=== PATIENT | female | born 1995 | race Caucasian/White ===

== ENCOUNTER 2016-12-06 21:12 | Emergency (ER) | payer OTHER ==
[~2016-12-06] VITALS: Ht 180.3 cm; Wt 75.7 kg
[2016-12-06 21:15] VITALS: TEMP 36.9; Ht 180.3 cm; Wt 75.7 kg
--- NOTE | 2016-12-06 21:58 | EMERGENCY ROOM VISIT NOTE ---
History Report prepared by Lucrecia: Monico Bernstein Under the Supervision of: Dr. Mauricio Vicente M.D. First contact with patient: 21:28 Chief Complaint: NEURO SYMPTOMS Stated Complaint: SLURRED SPEECH, MEMORY LOSS, NUMBNESS History of Present Illness The patient is a 20 year old female who presents to the Emergency Room with complaints of resolved numbness that occurred 30 minutes prior to arrival. The patients states that she was watching television and was on her phone frequently today. She states that her vision became blurry, but she thought it was due to watching a screen all day. The patient states that she got up and went to the bathroom to wash her face. She states that she could not move the right side of her face or her right hand correctly and reports they became numb. The patient states she was not able to talk. She reports that she could not move her hand and "froze up". The patient states that this episode lasted for 20 minutes. She reports that it rapidly resolved. The patient is accompanied by her boyfriend who said that her face was not drooping. He reports that she was having trouble forming sentences and was slightly slurring her speech. The patient admits that she is currently experiencing a headache that she describes as "all around", but believes this is because she is upset. She denies any leg weakness, gait troubles, LOC, taking medications, medication allergies, having symptoms in the past similar to her current symptoms, and a family history of neuro symptoms. 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 A total of 10 systems reviewed and were otherwise negative. Past Medical & Surgical Surgical Problems: (1) [place] teeth extracted Family History Cancer FH: heart disease Hypertension Social History Smoking Status: Never Smoker Smokeless Tobacco Use: No Alcohol Use: none Drug Use: none Marital Status: in relationship Housing Status: lives with roommate Occupation Status: [employer] Current/Historical Medications No Active Prescriptions or Reported Meds Allergies Coded Allergies: No Known Allergies (Unverified , 12/06/16) Physical Exam Vital Signs Date Time Temp Pulse Resp B/P (MAP) Pulse Ox O2 Delivery O2 Flow Rate FiO2 12/06/16 23:53 70 18 116/73 100 Room Air 12/06/16 22:32 77 12/06/16 22:30 79 18 115/77 99 Room Air 12/06/16 21:15 36.9 91 16 148/98 97 Room Air Physical Exam GENERAL: Patient is in no acute distress. Anxious and tearful. HEENT: No acute trauma, normocephalic atraumatic, mucous membranes moist, no nasal congestion, no scleral icterus. NECK: No stridor, no adenopathy, no meningismus, trachea is midline. No bruits. LUNGS: Clear to auscultation bilaterally, no wheeze, no rhonchi, breath sounds equal. HEART: Without murmurs gallops or rubs, regular rate and rhythm. ABDOMEN: Soft, nontender, bowel sounds positive, no hernias, no peritonitis. EXTREMITIES: No cyanosis or edema, full range of motion of all the joints without pain or difficulty, no signs for acute trauma. NEUROLOGIC: Oriented x 3, no acute motor or sensory deficits, no focal weakness. No facial droop or speech slur. No pronator drift or cerebellar dysfunction. SKIN: No rash, no jaundice, no diaphoresis. Medical Decision & Procedures ER Provider Diagnostic Interpretation: Radiology results as stated below per my review and radiologist interpretation: MRI HEAD: No ICH, mass effect, or edema. No foci of acute ischemia. No abnormal foci of signal or enhancement in the brain parenchyma. Radiologist: Taran Redmond MD Laboratory Results 12/06/16 22:20 Red Blood Count 4.59, Mean Corpuscular Volume 87.8, Mean Corpuscular Hemoglobin 30.3, Mean Corpuscular Hemoglobin Concent 34.5, Mean Platelet Volume 8.9, Neutrophils (%) (Auto) 44.9, Lymphocytes (%) (Auto) 42.6, Monocytes (%) (Auto) 6.6, Eosinophils (%) (Auto) 5.4, Basophils (%) (Auto) 0.5, Neutrophils # (Auto) 3.34, Lymphocytes # (Auto) 3.17, Monocytes # (Auto) 0.49, Eosinophils # (Auto) 0.40, Basophils # (Auto) 0.04 12/06/16 22:20 Test 12/06/16 21:45 12/06/16 22:20 Urine Color YELLOW Urine Appearance CLEAR (CLEAR) Urine pH 5.5 (4.5-7.5) Urine Specific [place] 1.017 (1.000-1.030) Urine Protein NEG (NEG) Urine Glucose (UA) NEG (NEG) Urine Ketones NEG (NEG) Urine Occult Blood NEG (NEG) Urine Nitrite NEG (NEG) Urine Bilirubin NEG (NEG) Urine Urobilinogen NEG (NEG) Urine Leukocyte Esterase NEG (NEG) Urine Opiates Screen NEG (NEG) Urine Methadone, Qualitative NEG (NEG) Urine Barbiturates NEG (NEG) Urine Phencyclidine (PCP) Level NEG (NEG) Ur Amphetamine/Methamphetamine NEG (NEG) MDMA (Ecstasy) Screen NEG (NEG) Urine Benzodiazepines Screen NEG (NEG) Urine Cocaine Metabolite NEG (NEG) Urine Marijuana (THC) NEG (NEG) White Blood Count 7.44 K/uL (4.8-10.8) Red Blood Count 4.59 M/uL (4.2-5.4) Hemoglobin 13.9 g/dL (12.0-16.0) Hematocrit 40.3 % (37-47) Mean Corpuscular Volume 87.8 fL (80-100) Mean Corpuscular Hemoglobin 30.3 pg (25-34) Mean Corpuscular Hemoglobin Concent 34.5 g/dl (32-36) Platelet Count 273 K/uL (130-400) Mean Platelet Volume 8.9 fL (7.4-10.4) Neutrophils (%) (Auto) 44.9 % Lymphocytes (%) (Auto) 42.6 % Monocytes (%) (Auto) 6.6 % Eosinophils (%) (Auto) 5.4 % Basophils (%) (Auto) 0.5 % Neutrophils # (Auto) 3.34 K/uL (1.4-6.5) Lymphocytes # (Auto) 3.17 K/uL (1.2-3.4) Monocytes # (Auto) 0.49 K/uL (0.11-0.59) Eosinophils # (Auto) 0.40 K/uL (0-0.5) Basophils # (Auto) 0.04 K/uL (0-0.2) RDW Standard Deviation 38.3 fL (36.4-46.3) RDW Coefficient of Variation 12.0 % (11.5-14.5) Immature Granulocyte % (Auto) 0.0 % Immature Granulocyte # (Auto) 0.00 K/uL (0.00-0.02) Prothrombin Time 10.8 SECONDS (9.0-12.0) Prothromb Time International Ratio 1.0 (0.9-1.1) Activated Partial Thromboplast Time 29.3 SECONDS (21.0-31.0) Partial Thromboplastin Ratio 1.1 Anion Gap 6.0 mmol/L (3-11) Est Creatinine Clear Calc Drug Dose 134.8 ml/min Estimated GFR () 133.9 Estimated GFR (Non- 115.6 BUN/Creatinine Ratio 15.0 (10-20) Calcium Level 9.4 mg/dl (8.5-10.1) Total Bilirubin 0.3 mg/dl (0.2-1) Aspartate Amino Transf (AST/SGOT) 11 U/L (15-37) Alanine Aminotransferase (ALT/SGPT) 14 U/L (12-78) Alkaline Phosphatase 97 U/L (45-117) Total Protein 8.0 gm/dl (6.4-8.2) Albumin 4.5 gm/dl (3.4-5.0) Globulin 3.5 gm/dl (2.5-4.0) Albumin/Globulin Ratio 1.3 (0.9-2) Thyroid Stimulating Hormone (TSH) 1.330 uIu/ml (0.300-4.500) Human Chorionic Gonadotropin, Qual NEG (NEG) Laboratory results reviewed by me. Medications Administered Medications (Trade) Dose Ordered Sig/Ramesh Route Start Time Stop Time Status Last Admin Dose Admin Aspirin (Aspirin Chew) 81 mg NOW STAT PO 12/07/16 00:30 12/07/16 00:31 DC 12/07/16 00:38 81 MG ECG Indication: weakness Rate (beats per minute): 75 Rhythm: normal sinus Findings: no acute ischemic change, no ectopy ED Course 2128: The patient was evaluated in room B12B. A complete history and physical exam was performed. 5: Ordered Gadobutrol 7.5 mmol IV. 0026: I reevaluated the patient and updated her on her results. 0029: I discussed the patient's case with Dr. Lindsay, [facility] Neurologist. He reports that he patient is able to go home and suggests giving her a baby aspirin. 0030: Ordered Aspirin 81 mg PO. 0034: Reevaluated the patient. Discussed results and discharge instructions: She verbalized understanding and agreement. The patient is ready for discharge. 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 Differential diagnoses considered include complex migraine, intracranial bleeding or mass, stroke, electrolyte imbalance, infection, dehydration, and stress. There is no leukocytosis or concerning anemia. No significant electrolyte abnormality, kidney failure or hepatitis. The patient appears to be in a euthyroid state. testing is negative. Urinalysis does not show infection. Urine tox is negative. EKG shows a sinus rhythm, no acute ischemia. Brain MRI shows no acute bleed, there is no mass, no evidence for stroke. On exam, the patient has no focal neurologic deficits. Patient presents with right sided symptoms that have resolved, she now has a mild headache. I discussed the case with neurology. Her presentation was felt to likely be consistent with a complex migraine. Patient is being discharged with outpatient neurologic follow-up. She will be on a baby aspirin daily for now until cleared by neurology. The patient should return for any worsening symptoms, rest and hydration were encouraged. Medication Reconcilliation Current Medication List: was personally reviewed by me Blood Pressure Screening Patient's blood pressure: Elevated blood pressure Blood pressure disposition: Elevated BP felt to be situational Consults Time Called: 28 Consulting Physician: Dr. Lindsay, [facility] Neurology Returned Call: [phone] I discussed the patient's case with Dr. Lindsay, [facility] Neurologist. He reports that he patient is able to go home and suggests giving her a baby aspirin. Impression Primary Impression: Numbness on right side Additional Impressions: Right sided weakness Head ache Scribe Attestation The scribe's documentation has been prepared under my direction and personally reviewed by me in its entirety. I confirm that the note above accurately reflects all work, treatment, procedures, and medical decision making performed by me. Departure Information Dispostion Home / Self-Care Prescriptions No Active Prescriptions or Reported Meds Referrals No Doctor, Assigned (PCP) Shaka Lindsay M.D. 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
[2016-12-06 22:39] LABS: URINE APPEARANCE CLEAR (CLEAR); URINE BILIRUBIN NEG (NEG); URINE COLOR YELLOW; URINE NITRITE NEG (NEG); URINE PH 5.5 (4.5-7.5); URINE SPECIFIC GRAVITY 1.017 (1.000-1.030); UROBILINOGEN NEG (NEG); ZZUR CULT IF INDIC CLEAN CATCH NO
[2016-12-06 22:42] LABS: MANUAL MICROSCOPIC REQUIRED? NO; REVIEW REQ? NO
[2016-12-06 22:46] LABS: PARTIAL THROMBOPLASTIN RATIO 1.1; PROTHROMBIN TIME (PATIENT) 10.8 SECONDS (9.0-12.0)
[2016-12-06 22:50] LABS: BASO % 0.5 %; BASO ABS # 0.04 K/uL (0-0.2); COMPLETE YES; EOS % 5.4 %; HEMATOCRIT 40.3 % (37-47); LYMPH % 42.6 %; LYMPH ABS # 3.17 K/uL (1.2-3.4); MEAN CELL VOLUME 87.8 fL (80-100); MEAN CORPUSCULAR HEMOGLOBIN 30.3 pg (25-34); MEAN CORPUSCULAR HGB CONC 34.5 g/dl (32-36); MEAN PLATELET VOLUME 8.9 fL (7.4-10.4); MONO % 6.6 %; NEUT % 44.9 %; PLATELET COUNT 273 K/uL (130-400); RED BLOOD COUNT 4.59 M/uL (4.2-5.4); WHITE BLOOD COUNT 7.44 K/uL (4.8-10.8)
[2016-12-06 22:54] LABS: PREG INTERNAL NEGATIVE QC NEG CLEAR BACKGROUND; PREG INTERNAL POSITIVE QC POS CONTROL LINE
[2016-12-06 23:02] LABS: CALCIUM 9.4 mg/dl (8.5-10.1); CREATININE 0.75 mg/dl (0.60-1.20); POTASSIUM 3.8 mmol/L (3.5-5.1)
[2016-12-06 23:13] LABS: ALB/GLOB RATIO 1.3 (0.9-2); THYROID STIMULATING HORMONE 1.33 uIu/ml (0.300-4.500)
[2016-12-06 23:16] LABS: BENZODIAZEPINE, URINE NEG (NEG); COCAINE,URINE NEG (NEG); PHENCYCLIDINE, URINE NEG (NEG)
[2016-12-06] MEDS ORDERED: GADAVIST IV PRN (23:25)
[2016-12-07] MEDS ORDERED: ASPIRIN 81 MG CHEW PO STA (00:30)
[2016-12-07 00:42] VITALS: BP 111/66; PULSE 75; O2SAT 97
--- NOTE | 2016-12-07 06:51 | DIAGNOSTIC IMAGING REPORT ---
BRAIN COMBO HISTORY: 20 years-old Female right face and arm numb, slurred speach for 20 minutes acute right arm and facial numbness with slurred speech COMPARISON: None available TECHNIQUE: Multiplanar multisequence MRI of the brain was obtained both with and without the use of 7.5 mL Gadavist FINDINGS: Large field of view professor of biochemistry images demonstrate no gross amount of the face or neck. No restricted diffusion to suggest acute ischemia. The midline structures including the corpus callosum, brainstem, optic chiasm, infundibulum, pituitary and pineal glands are unremarkable in the sagittal T1 sequence. No cerebellar tonsillar herniation. Imaged upper cervical spine is unremarkable. There is no acute intracranial hemorrhage, midline shift, abnormal extra-axial collections, hydrocephalus or intracranial mass. The Imaged cervical cord appears unremarkable. The major flow voids at the level of the skull base appear patent. There is an ill-defined somewhat linear area of mildly increased T2 signal and enhancement involving the periventricular left frontal lobe extending towards the left frontal horn as seen on image 17 of series 9 and image 12 of series 10 measuring 5 x 4 x 7 mm in AP, transverse and craniocaudal dimensions. No associated hemorrhage or edema. Mastoid air cells and paranasal sinuses are generally clear with only minimal anterior ethmoid sinus disease. Orbits are symmetric. Scalp and calvarium are unremarkable. IMPRESSION: 1. Ill-defined linear enhancing focus measuring up to 7 mm within the periventricular left frontal lobe as above suggests developmental venous angioma without associated hemorrhage. As a precautionary measure, a six-month follow-up may be considered to document stability. 2. Study is otherwise normal. No restricted diffusion to suggest acute ischemia. The above report was generated using voice recognition software. It may contain grammatical, syntax or spelling errors. Electronically signed by: Chino Doss M.D. 12/07/2016 6:49 AM Dictated Date/Time: 12/07/2016 6:40 AM
== END 2016-12-07 00:42 | disposition home or self-care (01) ==
LOC: C.EDB 21:14
DX: R51 Headache (principal); R20.0 Anesthesia of skin; R47.81 Slurred speech; R41.3 Other amnesia; R53.1 Weakness

== ENCOUNTER → 2016-12-29 | Outpatient (CLI) | payer OTHER ==
--- NOTE | 2016-12-29 14:06 | DIAGNOSTIC IMAGING REPORT ---
MRA OF THE INTRACRANIAL CIRCULATION WITHOUT CONTRAST CLINICAL HISTORY: Abnormal MRI. Hemisensory deficit. Numbness. COMPARISON STUDY: MRI of the brain December 06, 2016. TECHNIQUE: Utilizing a 1.5 Merry magnet and 3-D [id number] technique, unenhanced MRA of the intracranial circulation was obtained. FINDINGS: The bilateral M1, M2, A1 and A2 segments are patent. There is no intracranial aneurysm or abrupt vessel cut off. The posterior circulation is intact. Note is made of a right posterior communicating artery. The [place] sequence demonstrates an 8 mm hypointense focus within the left frontal lobe which corresponds to the suspected developmental venous anomaly shown on prior MRI. IMPRESSION: Unremarkable MRA of the intracranial circulation. Electronically signed by: Ronald Leigh M.D. 12/29/2016 2:04 PM Dictated Date/Time: 12/29/2016 1:57 PM
== END | disposition home or self-care (01) ==
LOC: C.MRI 13:16
PROVIDERS: ATTEND Physician Assistant
DX: R20.0 Anesthesia of skin (principal); R29.818 Other symptoms and signs involving the nervous system; R93.8 Abnormal findings on diagnostic imaging of other specified body structures

== ENCOUNTER → 2016-12-30 | Outpatient (CLI) | payer OTHER ==
--- NOTE | 2016-12-30 17:00 | EEG Procedure Note ---
EEG Procedure Note Date of Service Dec 30, 2016. Start / End Times Start Time: 2:39 PM End Time: 3:00 PM Referring Physician PADDY Cordoba History This is a 21-year-old female with hemisensory deficits. EEG for further evaluation of possible seizure etiology. Home Medication List No Active Prescriptions or Reported Meds Description This is a 21 electrode EEG with a single channel dedicated to limited EKG. The electrodes were placed in accordance with the International 10-20 system. At the start of the recording the patient was in an awake state. Background was well organized and composed of symmetric mixed alpha and beta frequencies. There was a symmetric well-formed moderate amplitude 8-9 Hz posterior dominant rhythm that was reactive to eye opening and closure. Hyperventilation was not done. Intermittent photic stimulation at various frequencies produced no abnormalities. There was no state changes or sleep transients. Interpretation This is a normal awake only routine EEG. There was no electrographic seizures or epileptiform discharges. Clinical Correlation A normal EEG does not rule out epilepsy if there is a strong clinical suspicion.
== END | disposition home or self-care (01) ==
LOC: C.NEUR 14:29
PROVIDERS: ATTEND Physician Assistant
DX: R29.818 Other symptoms and signs involving the nervous system (principal)